=== PATIENT | female | born 1985 | race Caucasian/White ===

== ENCOUNTER 2021-03-13 08:31 | Emergency (ER) | payer OTHER, SELFPAY ==
--- NOTE | 2021-03-13 10:00 | ECG_ITS ---
Test Reason : SYNCOPE Blood Pressure : / mmHG Vent. Rate : 062 BPM Atrial Rate : 062 BPM P-R Int : 158 ms QRS Dur : 076 ms QT Int : 394 ms P-R-T Axes : 046 038 026 degrees QTc Int : 399 ms Normal sinus rhythm Normal ECG No previous ECGs available Referred By: Lenora Cary Electronically Signed By:CECILIO MCCLELLAND MD
[2021-03-13 10:05] VITALS: BP 157/104; PULSE 77; RESP 20; TEMP 36.9; O2SAT 98; BMI 23.5
--- NOTE | 2021-03-13 10:23 | ED.SYNCOPE ---
HPI - Syncope General Chief Complaint: Syncope Stated Complaint: Syncope/fall Time Seen by Provider: 03/13/21 09:56 Source: patient Mode of arrival: ambulatory Limitations: no limitations History of Present Illness HPI narrative: 36 y/o female with history of thyroid cancer s/p thyroidectomy, mild anemia who presents to the ER after a syncopal episode earlier this morning. She reports hanging from her power bar as she does every morning for traction of her back. She thinks she looked up to her hands and the next thing she knows she passed out and fell onto the ground, landing on a push up bar. She thinks she was unconscious for maybe 5 seconds and felt groggy when she came to. She is sore on her right buttock where she hit the bar when she fell. She denies hitting her head, has no headache or neck pain. She has a history of passing out several years ago but does not recall a cause. MD complaint: loss of consciousness Onset (ago): hour(s) -: second(s) Description of event: post-event confusion Prodromal symptoms: none Witnessed: No Injuries sustained associated with event: other (right buttock) Current symptoms: back to baseline Treatments prior to arrival: none Related Data Allergies Allergy/AdvReac Type Severity Reaction Status Date / Time acetaminophen [From Vicodin] Allergy Hives Verified 03/13/21 10:16 cephalexin [From Keflex] Allergy Hives Verified 03/13/21 10:16 hydrocodone [From Vicodin] Allergy Hives Verified 03/13/21 10:16 morphine Allergy Hives Verified 03/13/21 10:16 Review of Systems Review of Systems: Constitutional: No Fever, No Chills ENT/Mouth: No sore throat, No Rhinorrhea, No Swallowing Difficulty Eyes: No Eye Pain, No Swelling, No Redness Cardiovascular: No Chest Pain, No SOB, No Orthopnea, No Edema Respiratory: No Cough, No Sputum, No Wheezing, No dyspnea Gastrointestinal: No Nausea, No Vomiting, No Diarrhea, No abdominal Pain Genitourinary: No Dysuria, No Urinary Frequency, No Hematuria Musculoskeletal: No joint pain, No Myalgias Skin: No Skin Lesions, No rash Neuro: No Weakness, No Numbness, No Dizziness, No Headache Psych: No Anxiety/Panic, No Depression Heme/Lymph: No Bruising, No Lymphadenopathy Endocrine: No Polyuria, No Polydipsia PMFSH Past Medical History Medical History (Updated 03/13/21 @ 11:45 by IDALMIS Gonzalez) Cancer of thyroid Hypermobile Gina-Danlos syndrome Orthostatic hypotension dysautonomic syndrome Surgical History (Updated 03/13/21 @ 10:13 by Katie Dawn) History of lumbar fusion Social History Social History Advance Directives: No Advance Directives Information Provided: No Physical Exam Vital Signs: Vital Signs: Last Vital Signs Temp 98.4 F 03/13/21 10:05 Pulse 77 03/13/21 10:05 Resp 20 03/13/21 10:05 BP 157/104 H 03/13/21 10:05 Pulse Ox 98 03/13/21 10:05 Body Mass Index 23.5 Appearance: Alert. Oriented X3. No acute distress. Eyes: Pupils equal, round and reactive to light. ENT: Pharynx normal. Neck: Normal inspection. Neck supple. CVS: Normal heart rate and rhythm. Pulses normal. Respiratory: No respiratory distress. Breath sounds normal. Abdomen: Soft and nontender. +BS x4 Skin: Skin warm and dry. Normal skin color. Normal skin turgor. No rashes. Extremities: No lower extremity edema. Neuro: Oriented X 3. No motor deficit. No sensory deficit. Course Course Course Narrative: 36 y/o female presenting to the ER for evaluation after a brief syncopal episode while she was hanging on her pullup bar this morning. Question of increased vagal tone causing syncope. She now feels back to normal. Slightly hypertensive on arrival otherwise exam is benign. Will get basic lab workup and check EKG. No risk factors for PE, PERC negative. Reevaluation(s) Reevaluation #1: Lab workup and EKG are unremarkable. She is stable for discharge home with plan to follow up with her PCP. MDM - Syncope Differential Diagnosis Differential diagnosis: Likely syncope due to orthostatic hypotension, vasovagal syncope, complete atrioventricular block and dehydration Medical Records Attestation: I reviewed the patient's medical records. Lab Data Attestation: I reviewed the patient's lab results. Result diagrams: 03/13/21 10:44 03/13/21 10:44 Labs: Lab Results 03/13/21 03/13/21 03/13/21 Range/Units 10:44 10:44 10:44 WBC 6.0 (4.8-10.8) X10*3/uL RBC 3.97 L (4.20-5.50) X10*6/uL Hgb 12.8 (12.0-16.0) g/dl Hct 38.8 (37-47) % MCV 97.7 (80-98) fL MCH 32.2 (27.0-33.0) pg MCHC 33.0 (31.0-35.0) g/dl RDW 12.4 (11.0-16.0) % Plt Count 331 (160-400) X10*3/uL MPV 12.5 H (9.4-12.3) fL Immature Gran % (Auto) 0.3 (0.0-0.4) % Neut % (Auto) 54.8 (45-73) % Lymph % (Auto) 26.1 (20-40) % [place] % (Auto) 9.4 (2-11) % Eos % (Auto) 8.2 H (0-4) % Baso % (Auto) 1.2 (0-2) % Lymph # (Auto) 1.6 (1.2-4.9) X10*3/uL [place] # (Auto) 0.6 (0.1-1.2) X10*3/uL Eos # (Auto) 0.5 H (0.0-0.4) X10*3/uL Baso # (Auto) 0.1 (0.0-0.2) X10*3/uL Abs Immat Gran (auto) 0.02 (0.00-0.03) X10*3/uL Absolute Neuts (auto) 3.3 (2.0-8.3) X10*3/uL Absolute Nucleated RBC 0.000 (0.0-0.012) X10*3/uL Nucleated RBC % (auto) 0.0 (0.0-0.2) /100WBC Sodium 140 (135-145) mmol/L Potassium 4.7 (3.3-5.1) mmol/L Chloride 104 (96-108) mmol/L Carbon Dioxide 25 (22-29) mmol/L Anion Gap 16 (12-20) BUN 9 (9-16) mg/dL Creatinine 0.95 (0.5-1.4) mg/dL Estim Creat Clear Calc 78.0 Estimated GFR > 60 Random Glucose 81 (60-115) mg/dL Calcium 9.9 (8.4-10.2) mg/dL Magnesium 1.6 (1.6-2.6) mg/dL Total Bilirubin 0.3 (0.0-1.0) mg/dL Direct Bilirubin < 0.2 (0.0-0.5) mg/dL AST 17 (5-31) U/L ALT 11 (0-31) U/L Alkaline Phosphatase 52 (39-117) U/L Total Protein 7.2 (6.5-8.0) g/dL Albumin 4.4 (3.5-5.0) g/dL TSH < 0.01 L (0.32-4.0) uIU/mL Ethyl Alcohol < 10 mg/dL ECG Data Attestation: I personally reviewed and interpreted this ECG as follows: ECG interpretation date: 03/13/21 ECG interpretation time: 11:43 Interpretation: normal sinus rhythm, HR 62 bpm, normal CA interval, no ST segment elevations or depressions Discharge Plan Discharge Clinical Impression: Vasovagal syncope Patient Disposition: Home, Self-Care Instructions: Syncope (ED) Additional Instructions: Your lab workup today was unremarkable. Your EKG was normal. Follow up with your doctor. Interventions: ED Discharge Assessment Last Done: 03/13/21 12:19 Discharge Date/Time: 03/13/21 12:21
[2021-03-13 11:11] LABS: MANUAL DIFF FLAG NO
[2021-03-13 11:17] LABS: Basophils Absolute Auto 0.1 X10*3/uL (0.0-0.2); Basophils Percent Auto 1.2 % (0-2); Eosinophils Absolute Auto 0.5 X10*3/uL (0.0-0.4); Eosinophils Percent Auto 8.2 % (0-4); Hematocrit 38.8 % (37-47); Hemoglobin 12.8 g/dl (12.0-16.0); Imm Gran Abs Auto 0.02 X10*3/uL (0.00-0.03); Imm Gran Pct Auto 0.3 % (0.0-0.4); Lymphocytes Absolute Auto 1.6 X10*3/uL (1.2-4.9); Lymphocytes Percent Auto 26.1 % (20-40); Mean Corpuscular Hemoglobin 32.2 pg (27.0-33.0); Mean Corpuscular Volume 97.7 fL (80-98); Mean Platelet Volume 12.5 fL (9.4-12.3); Monocytes Absolute Auto 0.6 X10*3/uL (0.1-1.2); Monocytes Percent Auto 9.4 % (2-11); Neutrophils Absolute Auto 3.3 X10*3/uL (2.0-8.3); Neutrophils Percent Auto 54.8 % (45-73); Platelet Count 331 X10*3/uL (160-400); Red Blood Count 3.97 X10*6/uL (4.20-5.50); Red Cell Distribution Width 12.4 % (11.0-16.0)
[2021-03-13 11:26] LABS: Ethanol < 10 mg/dL
[2021-03-13 11:32] LABS: Alanine Aminotransferase 11 U/L (0-31); Albumin Level 4.4 g/dL (3.5-5.0); Alkaline Phosphatase 52 U/L (39-117); Anion Gap 16 (12-20); Aspartate Amino Transferase 17 U/L (5-31); Bilirubin Direct < 0.2 mg/dL (0.0-0.5); Bilirubin Total 0.3 mg/dL (0.0-1.0); Blood Urea Nitrogen 9 mg/dL (9-16); Calcium 9.9 mg/dL (8.4-10.2); Carbon Dioxide 25 mmol/L (22-29); Chloride 104 mmol/L (96-108); Estimated Glomerular Filt Rate > 60; Glucose Random 81 mg/dL (60-115); Magnesium 1.6 mg/dL (1.6-2.6); Potassium 4.7 mmol/L (3.3-5.1); Sodium 140 mmol/L (135-145); Total Protein 7.2 g/dL (6.5-8.0)
[2021-03-13 11:50] LABS: TSH reflex Free T4 < 0.01 uIU/mL (0.32-4.0)
--- NOTE | 2021-03-13 12:05 | PC.NURSE ---
pt resting comfortably on the stretcher, reports no complaint at this time, respirations even and unlabored
[2021-03-13 12:36] LABS: Free T4 (Free Thyroxine) 1.85 ng/dL (0.71-1.85)
== END 2021-03-13 12:21 | disposition home or self-care (01) ==
PROVIDERS: Physician Assistant; Emergency Provider Emergency Medicine; PCP Internal Medicine
DX: R55 Syncope and collapse (principal); D64.9 Anemia, unspecified
CPT/HCPCS: 36415; 80048; 80076; 82077; 83735; 84439; 84443; 85025; 93005; 99283